=== PATIENT | female | born 1965 | race Caucasian/White ===

== ENCOUNTER 2022-05-08 16:52 | Emergency (ER) | payer BC ==
[~2022-05-08] VITALS: Ht 167.6 cm; Wt 74.8 kg
[2022-05-08 16:55] VITALS: BP_SYST 120
--- NOTE | 2022-05-08 17:00 | NUR ---
TRIAGED AND TAKEN IMMEDIATELY BACK TO BED #1, MIKA GIVEN REPORT
--- NOTE | 2022-05-08 17:05 | NUR ---
# 16 FR Montoya catheter with use of sterile technique. Immediate return of 350 cc YELLOW urine noted. Bedside drainage bag placed below level of bladder. Urine sample collected and sent to lab. Pt tolerated procedure WELL. Patient unable to toilet self.
--- NOTE | 2022-05-08 17:20 | NUR ---
RECEIVED PT FROM MIKA SHARMA. PT HAS C/O NOT BEING ABLE TO URINATE THIS MORNING. PT WENT TO URGENT CARE AND THEY TOLD HER TO COME TO THE E.D. PT IS AAOX4. ON R/A. DENIES N/V. STATES SHE HAS LOWER ABDOMINAL PAIN 8/10. DISTAL PULSES NORMAL, SKIN WARM, NO EDEMA. AT BEDSIDE. SIDERAILS UP X2.
--- NOTE | 2022-05-08 17:21 | NUR ---
# 16 FR Montoya catheter with use of sterile technique. Immediate return of 500 cc BLOOD TINGED urine noted. Bedside drainage bag placed below level of bladder. Urine sample collected and sent to lab. Pt tolerated procedure WELL. .
[2022-05-08 17:53] LABS: BILIRUBIN,URINE NEGATIVE (NEGATIVE); BLOOD, URINE 3+ (NEGATIVE); CLARITY/URINE SL CLOUDY (CLEAR); COLOR,URINE YELLOW (YELLOW); GLUCOSE,URINE NEGATIVE (NEGATIVE); KETONES,URINE NEGATIVE (NEGATIVE); LEUKOCYTE ESTERASE ,URINE NEGATIVE (NEGATIVE); NITRITE, URINE NEGATIVE (NEGATIVE); PROTEIN URINE NEGATIVE (NEGATIVE); UROBILINOGEN,URINE 0.2 (0.2-1.0)
[2022-05-08 18:12] LABS: RBC,URINE 20-50 /HPF (0-3); WBC,URINE 0-3 /HPF (0-3)
[2022-05-08 18:13] LABS: BACTERIA,URINE FEW /HPF (None Seen)
--- NOTE | 2022-05-08 18:28 | NUR ---
DR. HERRING AT BEDSIDE TO ASSESS PT.
--- NOTE | 2022-05-08 18:42 | NUR ---
DR. HERRING AT BEDSIDE TO PREFORMING NEURO EXAM ON PT.
[2022-05-08 18:52] VITALS: BP_SYST 140
--- NOTE | 2022-05-08 18:54 | NUR ---
BLOOD OBTAINED AND TAKEN TO LAB.
[2022-05-08 19:13] LABS: BASOPHILS % (AUTO) 0.5 % (0.0-2.0); EOSINOPHILS % (AUTO) 0.8 % (0.0-4.0); HEMATOCRIT 38.8 % (36-48); LYMPHOCYTES # (AUTO) 1.8 K/uL (1.0-5.5); MEAN CORPUSCULAR HEMOGLOBIN 31 pg (27-31); MEAN CORPUSCULAR HGB CONC 33 % (32-36); MEAN CORPUSCULAR VOLUME 92 fL (79.0-98.0); MONOCYTES # (AUTO) 0.6 K/uL (0.0-1.0); MONOCYTES % (AUTO) 10.1 % (1.7-9.3); NEUTROPHILS # (AUTO) 3.9 K/uL (1.8-7.7); NEUTROPHILS % (AUTO) 60.6 % (40.0-70.0); PLATELET COUNT (AUTO) 255 K/uL (130-430); RED BLOOD CELL COUNT(AUTO) 4.23 MIL/uL (4.2-6.2); RED CELL DISTRIBUTION WIDTH 13.7 % (9.0-15.0); WHITE BLOOD COUNT (AUTO) 6.4 K/uL (4.8-10.8)
--- NOTE | 2022-05-08 19:29 | NUR ---
ENDORSED PT TO BRIGETTE SHARMA. ALL QUESTIONS AND CONCERNS ADDRESSED.
[2022-05-08 19:35] LABS: ALBUMIN 3.1 g/dL (3.4-4.8); CALCIUM 9.2 mg/dL (8.4-11.0); CREATININE 0.77 mg/dL (0.55-1.30); TOTAL BILIRUBIN 0.3 mg/dL (0.0-1.0)
--- NOTE | 2022-05-08 19:42 | NUR ---
PT IS AA&OX4. AFEBRILE. NAD. DENIES PAIN. 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 SAFE & HAZARD FREE ENVIRONMENT PROVIDED.
--- NOTE | 2022-05-08 20:07 | NUR ---
DR. RUIZ AT BEDSIDE DISCUSSING RESULTS.
[2022-05-08] MEDS ORDERED: TAMS-11 PO (20:14)
--- NOTE | 2022-05-08 20:20 | NUR ---
Patient given written and verbal discharge instructions and verbalizes understanding. ER MD discussed with patient the results and treatment provided. Patient in stable condition. ID arm band removed. Rx of FLOMAX given. Patient educated on pain management and to follow up with PMD. Pain Scale 0/10. Opportunity for questions provided and answered. Medication side effect fact sheet provided.
== END 2022-05-08 20:20 | disposition home or self-care (01) ==
LOC: SED 16:52
DX: N20.0 Calculus of kidney (principal); R33.9 Retention of urine, unspecified; Z79.899 Other long term (current) drug therapy
CPT/HCPCS: 36415; 76376; 80053; 81000; 85025; 99284